=== PATIENT | male | born 1985 | race Caucasian/White ===

== ENCOUNTER 2020-11-01 22:28 | Emergency (ER) | payer OTHER ==
[2020-11-02 01:46] LABS: HEMOGLOBIN 12.7 gm/dl (14.0-17.5); RED BLOOD COUNT 4.33 M/UL (4.20-5.50); WHITE BLOOD COUNT 7.8 K/UL (4.5-11.0)
[2020-11-02 02:11] LABS: BUN/CREATININE RATIO 10 (0-10)
[2020-11-02] MEDS ORDERED: IBUPROFEN800 MG PO (02:45)
[2020-11-02] MEDS ORDERED: OMNICEF 300 MG300 MG PO (02:45)
[2020-11-02] MEDS ORDERED: VIBRAMYCIN 100100 MG PO (02:45)
== END 2020-11-02 04:10 | disposition home or self-care (01) ==
LOC: ER1 22:28
PROVIDERS: Physician Assistant
DX: L03.115 Cellulitis of right lower limb (principal); Z20.822 Contact with and (suspected) exposure to COVID-19; F17.210 Nicotine dependence, cigarettes, uncomplicated
CPT/HCPCS: 80053; 83605; 85025; 85652; 86140; 87040; 96365; 96366; 96375; 99283; J0696; J3370; J7030; U0002